=== PATIENT | male | born 1940 | race African-American/Black ===

== ENCOUNTER → 2020-03-07 | Outpatient (CLI) | payer OTHER | END | disposition home or self-care (01) | LOC: MRI 09:39 | PROVIDERS: ATTEND General Practice | DX: G31.89 Other specified degenerative diseases of nervous system (principal); G30.1 Alzheimer's disease with late onset; F01.50 Vascular dementia, unspecified severity, without behavioral disturbance, psychotic disturbance, mood disturbance, and anxiety | CPT/HCPCS: 70551 ==

== ENCOUNTER 2020-12-27 13:49 | Emergency (ER) | payer OTHER ==
[~2020-12-27] VITALS: Ht 172.7 cm; Wt 95.3 kg
== END 2020-12-27 18:33 | disposition home or self-care (01) ==
LOC: ER 13:49
DX: R63.0 Anorexia (principal); M62.81 Muscle weakness (generalized); G30.8 Other Alzheimer's disease; F02.80 Dementia in other diseases classified elsewhere, unspecified severity, without behavioral disturbance, psychotic disturbance, mood disturbance, and anxiety; Z03.818 Encounter for observation for suspected exposure to other biological agents ruled out

== ENCOUNTER 2022-05-19 09:59 | Emergency (ER) | payer OTHER ==
[~2022-05-19] VITALS: Ht 170.2 cm; Wt 86.2 kg
[2022-05-19] MEDS ORDERED: VAZALORE81 MG PO (10:57)
[2022-05-19] MEDS ORDERED: AVALIDE 300-121 EACH PO (10:57)
[2022-05-19] MEDS ORDERED: TAMS0.4C PO (10:57)
[2022-05-19] MEDS ORDERED: MECLIZINE HCL25 MG PO (14:16)
== END 2022-05-19 15:31 | disposition home or self-care (01) ==
LOC: ER 09:59
DX: R53.1 Weakness (principal); I10 Essential (primary) hypertension; N40.0 Benign prostatic hyperplasia without lower urinary tract symptoms

== ENCOUNTER 2022-05-23 18:59 | Emergency (ER) | payer OTHER ==
[~2022-05-23] VITALS: Ht 175.3 cm; Wt 90.7 kg
[~2022-05-23 18:59] MED LIST: AVALIDE 300-121 EACH PO; MECLIZINE HCL25 MG PO; TAMS0.4C PO; VAZALORE81 MG PO
[2022-05-23] MEDS ORDERED: PROSCAR5 MG (19:33)
== END 2022-05-23 21:48 | disposition home or self-care (01) ==
LOC: ER 18:59
DX: U07.1 COVID-19 (principal)

== ENCOUNTER 2024-06-22 10:28 | Emergency (ER) | payer OTHER ==
[~2024-06-22] VITALS: Ht 175.3 cm; Wt 90.7 kg
[~2024-06-22 10:28] MED LIST changes: +PROSCAR5 MG
[2024-06-22 10:34] VITALS: BP 184/85; O2SAT 95
[2024-06-22] MEDS ORDERED: 0.9 % SODIUM CHLORIDE 1,000 ML IV SCH (10:45)
[2024-06-22 11:19] LABS: HEMATOCRIT 39.7 % (39.0-48.0); HEMOGLOBIN 12.9 g/dL (13-16.00); MEAN CELL VOLUME 84.4 fL (80.0-100.00); MEAN CORPUSCULAR HEMOGLOBIN 27.4 pg (27.00-32.0); MEAN CORPUSCULAR HGB CONC 32.4 g/dl (32.0-36.0); PLATELET COUNT 121 K/uL (150-450); RED BLOOD COUNT 4.71 M/uL (4.00-6.00); RED CELL DISTRIBUTION WIDTH 14.8 % (11.5-14.5)
[2024-06-22 11:41] LABS: CALCIUM 9.3 mg/dL (8.5-10.1); CREATININE SERUM 1.25 mg/dL (0.70-1.30); GFR 54.89; POTASSIUM 3.7 mEq/L (3.5-5.1)
[2024-06-22 13:57] LABS: URINE APPEARANCE Cloudy; URINE BILIRRUBIN Negative (NEGATIVE); URINE BLOOD Large; URINE COLOR Yellow; URINE GLUCOSE Negative (NEGATIVE); URINE LEUKOCYTE Small; URINE NITRATE Negative; URINE PROTEIN 30 (NEGATIVE)
[2024-06-22 14:02] LABS: URINE BACTERIA 406.3 uL (0.0-1933); URINE EPITHELIAL CELLS 21.6 uL (0.0-38.8); URINE RBC 3645.2 uL (0.0-20.8); URINE WBC 111.7 uL (0.0-23.2)
[2024-06-22 14:25] LABS: URINE CAST 0.58 uL (0.0-1.40); URINE KETONE 40 (NEGATIVE)
[2024-06-22] MEDS ORDERED: ACETAMINOPHEN 325 MG TABLET PO STA (15:22)
[2024-06-22] MEDS ORDERED: ACETAMINOPHEN 500 MG GEL..CAP PO ONE (15:22)
== END 2024-06-22 16:00 | disposition home or self-care (01) ==
LOC: ER 10:28
PROVIDERS: Emergency Medicine
DX: U07.1 COVID-19 (principal); R63.0 Anorexia; Z68.45 Body mass index [BMI] 70 or greater, adult
CPT/HCPCS: 36415; 70450; 71045; 93005; 96365; 96366; 99284; J7030